=== PATIENT | female | born 1960 | race Caucasian/White ===

== ENCOUNTER → 2016-08-05 | Outpatient (CLI) | payer BC ==
[~2016-08-05] MED LIST: BUPR-79 PO; NITR1CAP33 PO; OXYC-57 PO; PHEN-876 PO; ZNTT/150 PO
--- NOTE | 2016-08-06 13:19 | MAMMOGRAPHY REPORT ---
BILATERAL DIGITAL SCREENING MAMMOGRAM TOMOSYNTHESIS WITH CAD: 08/05/2016 CLINICAL HISTORY: Routine screening. Patient has no complaints. TECHNIQUE: Breast tomosynthesis in addition to standard 2D mammography was performed. Current study was also evaluated with a Computer Aided Detection (CAD) system. COMPARISON: Comparison is made to exams dated: 07/29/2015 mammogram, 07/25/2014 mammogram, 03/21/2013 mammogram, 12/01/2011 mammogram, 09/05/2010 stereotactic biopsy, and 07/22/2010 mammogram - [facility]. BREAST COMPOSITION: There are scattered areas of fibroglandular density in both breasts. FINDINGS: There is a stable metallic biopsy marker in the anterior right breast. No new suspicious mass, architectural distortion or cluster of microcalcifications is seen. IMPRESSION: ACR BI-RADS CATEGORY 1: NEGATIVE There is no mammographic evidence of malignancy. A 1 year screening mammogram is recommended. The p atient will receive written notification of the results. Approximately 10% of breast cancers are not detected with mammography. A negative mammographic repor t should not delay biopsy if a clinically suggestive mass is present. Christina Simmons M.D. ay/:08/05/2016 17:19:30 Mathematician Research: Chen BURKS(Lynda)(Hakeem), [facility] letter sent: Normal 1/2 BI-RADS Code: ACR BI-RADS Category 1: Negative
== END | disposition home or self-care (01) ==
LOC: C.MAMM 16:38
PROVIDERS: ATTEND Family Medicine
DX: Z12.31 Encounter for screening mammogram for malignant neoplasm of breast (principal)

== ENCOUNTER 2017-04-15 05:20 | Inpatient (IN) | payer BC, OTHER ==
--- NOTE | 2017-03-19 15:45 | PAT Medication Instructions ---
Service Date Mar 19, 2017. Current Home Medication List Bupropion (Wellbutrin-Xl), 1 TAB PO QAM Bupropion HCl (Bupropion HCl Xl), 1 TAB PO QAM Meloxicam (Meloxicam), 1 TAB PO QAM Omeprazole (Prilosec), 20 MG PO Q2D Ranitidine (Zantac), 150 MG PO Q2D Trazodone Hcl (Trazodone), 50 MG PO HS PRN for Sleep Valacyclovir (Valtrex), 1,000 MG PO DAILY PRN for cold sores [I Caps], 1 TAB PO QAM Medication Instructions For Your Scheduled Surgery - Check with surgeon for instructions: Meloxicam (Meloxicam), 1 TAB PO QAM - Continue as directed: Omeprazole (Prilosec), 20 MG PO Q2D Ranitidine (Zantac), 150 MG PO Q2D - Hold the following medications the morning of surgery: [I Caps], 1 TAB PO QAM - Take the following medications the morning of surgery with a sip of water: Bupropion (Wellbutrin-Xl), 1 TAB PO QAM Bupropion HCl (Bupropion HCl Xl), 1 TAB PO QAM Valacyclovir (Valtrex), 1,000 MG PO DAILY PRN for cold sores (if needed) - Take the following medications as scheduled the night before surgery: Trazodone Hcl (Trazodone), 50 MG PO HS PRN for Sleep Valacyclovir (Valtrex), 1,000 MG PO DAILY PRN for cold sores (if needed) If you have any questions please call us at [phone] or [phone] or [phone]
[2017-03-19 16:26] LABS: BASO % 0.5 %; BASO ABS # 0.04 K/uL (0-0.2); EOS % 2.7 %; HEMATOCRIT 40.5 % (37-47); HEMOGLOBIN 13.8 g/dL (12.0-16.0); IG# 0.03 K/uL (0.00-0.02); LYMPH % 39.5 %; LYMPH ABS # 2.97 K/uL (1.2-3.4); MEAN CELL VOLUME 89.4 fL (80-100); MEAN CORPUSCULAR HEMOGLOBIN 30.5 pg (25-34); MEAN CORPUSCULAR HGB CONC 34.1 g/dl (32-36); MEAN PLATELET VOLUME 9.3 fL (7.4-10.4); MONO % 6.8 %; MONO ABS # 0.51 K/uL (0.11-0.59); NEUT % 50.1 %; NEUT ABS # 3.76 K/uL (1.4-6.5); PLATELET COUNT 261 K/uL (130-400); RED CELL DISTRIBUTION WIDTH CV 13.2 % (11.5-14.5); RED CELL DISTRIBUTION WIDTH SD 43.1 fL (36.4-46.3); WHITE BLOOD COUNT 7.51 K/uL (4.8-10.8)
[2017-03-19 16:36] LABS: PTT PATIENT 26.6 SECONDS (21.0-31.0)
[2017-03-19 16:37] LABS: CALCIUM 9.1 mg/dl (8.5-10.1); CREATININE 0.87 mg/dl (0.60-1.20); POTASSIUM 4.4 mmol/L (3.5-5.1)
--- NOTE | 2017-03-19 17:09 | DIAGNOSTIC IMAGING REPORT ---
CHEST 2 VIEWS ROUTINE HISTORY: Preop. COMPARISON: None. FINDINGS: The lungs are clear. Cardiac silhouette is normal in size. No pleural effusions. No pneumothorax. Dextroscoliosis of the thoracic spine. IMPRESSION: No acute process. Electronically signed by: Price Stephens M.D. 03/19/2017 5:07 PM Dictated Date/Time: 03/19/2017 5:06 PM
[2017-03-20 06:56] LABS: HEMOGLOBIN A1C 5.6 % (4.5-5.6)
--- NOTE | 2017-04-14 18:21 | HISTORY & PHYSICAL EXAMINATION ---
DATE OF ADMISSION: 04/15/2017 CHIEF COMPLAINT: Chronic left knee pain. HISTORY OF PRESENT ILLNESS: This is a 56-year-old female patient of Dr. Irving complaining of chronic left knee pain, longstanding, now progressively getting worse. The patient has been diagnosed with end-stage osteoarthritis, per clinical and radiographic exams. The patient has failed conservative treatment including intraarticular injections, previous arthroscopies and physical therapy. The patient has increased pain with weightbearing activities and her pain does interfere with her activities of daily living. PAST MEDICAL HISTORY: Osteoarthritis, sciatica, acid reflux, and obesity. SOCIAL HISTORY: Nonsmoker and occasional drinker. PAST SURGICAL HISTORY: Back surgery, right foot surgery, total knee replacement on the right, cholecystectomy, incontinence mesh, tubal ligation, varicose vein surgery, tonsillectomy and left knee arthroscopy x2. FAMILY HISTORY: Noncontributory. REVIEW OF SYSTEMS: The patient complains of chronic left knee pain; otherwise, denies any shortness of breath, chest pain, nausea, vomiting or any other joint complaints. MEDICATIONS: Meloxicam 15 mg daily, trazodone 50 mg daily at bedtime, valacyclovir 1000 mg 2 tablets every 12 hours for cold sores p.r.n., bupropion 150 mg again 450 daily, omeprazole 20 mg every other day and ranitidine 150 mg every other day, tramadol as needed. ALLERGIES: FLAGYL. PHYSICAL EXAMINATION: GENERAL: Well-developed, well-nourished 56-year-old female in no acute distress. She is alert and oriented x3 and pleasant. HEENT: Normocephalic, atraumatic. Extraocular motions are intact. Pupils are equal and reactive to light. HEART: Regular rate and rhythm, no murmurs appreciated. LUNGS: Clear. ABDOMEN: Soft, nontender, bowel sounds present. EXTREMITIES: Left knee is 0-100 degrees of range of motion. She has a neutral alignment with mild effusion. She has crepitation with passive range of motion. She has 4/5 strength. NEUROLOGIC: Neurovascularly, she is intact in her left lower extremity. DIAGNOSES: Left knee end-stage osteoarthritis, acid reflux, and obesity. PLAN: The patient was advised of her diagnosis. Indications, risks, benefits, and postop course have all been reviewed. The patient wishes to proceed with a left total knee arthroplasty. Necessary consent forms, preoperative testing and clearances will be obtained. [facility]
[~2017-04-15] VITALS: Ht 167.6 cm; Wt 86.2 kg
[2017-04-15] VITALS (10 sets, daily range): BP systolic 103–140; BP diastolic 65–80; PULSE 82–94; TEMP 36.5–37; O2SAT 94–99; Ht 167.6 cm; Wt 86.2 kg
[~2017-04-15 05:20] MED LIST changes: -BUPR-79 PO; +BUPRTAB51 PO; +I CAPS PO; +MELO15TA4 PO; -NITR1CAP33 PO; -OXYC-57 PO; -PHEN-876 PO; +PRLSR20 PO; +TRAZ50TA35 PO; +VALA500T60 PO; +WLLXL150 PO
[2017-04-15] MEDS ORDERED: DEXAMETHASONE 4 MG TAB PO SCH (06:00)
[2017-04-15] MEDS ORDERED: FAMOTIDINE 20 MG TAB PO SCH (06:00)
[2017-04-15] MEDS ORDERED: CeleBREX 200 MG CAP PO SCH (06:00)
[2017-04-15] MEDS ORDERED: ACETAMINOPHEN 500 MG TAB PO SCH (06:00)
[2017-04-15] MEDS ORDERED: CEFAZOLIN 2000MG IV PUSH 10 ML IV SCH (06:00)
[2017-04-15] MEDS ORDERED: ROPIVACAINE 5MG/ML 30 ML 150 MG, BUPIVACAINE 0.5% MPF INJ 30 ML, EpINEphrine HCL INJ 0.... INFIL SCH ×8 (06:00)
[2017-04-15] MEDS ORDERED: GABAPENTIN 300 MG CAP PO SCH (06:00)
[2017-04-15] MEDS ORDERED: LACTATED RINGER'S 1000ML 500 ML IV SCH (06:00)
[2017-04-15] MEDS ORDERED: LACTATED RINGER'S 1000ML IV SCH (06:00)
[2017-04-15] MEDS ORDERED: LACTATED RINGER'S 1000ML 1,000 ML IV SCH (06:00)
[2017-04-15] MEDS ORDERED: METOCLOPRAMIDE HCL 10 MG TAB PO SCH (06:00)
[2017-04-15] MEDS ORDERED: BUPIVACAINE 0.5 % 5 MG/1 ML PF 10ML VIAL ONE (06:20)
[2017-04-15] MEDS ORDERED: BUPIVACAINE 0.25% 30 ML VIAL ONE (06:21)
[2017-04-15] MEDS: TRANEXAMIC ACID INJ 1,000 MG in SYRINGE 0 ML IV SCH ×2 (06:30→07:10)
[2017-04-15] MEDS ORDERED: MIDAZOLAM HCL 1 MG/ML 2ML VIAL ONE ×4 (06:55→08:13)
[2017-04-15] MEDS ORDERED: EpHEDrine SULFATE INJ 50 MG/ML AMP IV PRN (07:15)
[2017-04-15] MEDS ORDERED: ATROPINE SULFATE 0.1 MG/ML 5ML SYR IV PRN (07:15)
[2017-04-15] MEDS ORDERED: ONDANSETRON INJ 2 MG/ML 2 ML VIAL IV PRN ×2 (07:15→09:30)
--- NOTE | 2017-04-15 07:19 | History & Physical Bridge Note ---
H&P Re-Evaluation Bridge Note: I have examined the patient, reviewed the History & Physical and in the interval since the performance of the History & Physical I have noted the following changes of clinical significance: No changes noted
[2017-04-15] MEDS ORDERED: ORTHO JOINT ANESTHETIC ONE (07:38)
[2017-04-15] MEDS ORDERED: BACITRACIN 50000 UNIT VIAL ONE (07:38)
[2017-04-15] MEDS ORDERED: POVIDONE-IODINE OP SOLN 30 ML BTL ONE (07:38)
[2017-04-15] MEDS ORDERED: PROPOFOL IV EMULSION 10 MG/ML 20 ML VIAL IV ONE (07:48)
[2017-04-15] MEDS ORDERED: LIDOCAINE HCL 2% 2 ML VIAL (20MG/ML) ONE (07:48)
--- NOTE | 2017-04-15 09:24 | [facility] Post Operative Brief Note ---
Immediate Operative Summary Operative Date Apr 15, 2017. Pre-Operative Diagnosis Left knee end stage osteoarthritis Post-Operative Diagnosis Left knee end stage osteoarthritis Procedure(s) Performed Left total knee arthroplasty Surgeon Dr. Christensen Pizza Maker Surgeon(s) Kane Merritt PA-C Estimated Blood Loss 5cc Findings tricompartmental djd oa chronic acl tear and lateral meniscal tear Specimens A. Left knee bone and tissue Drains 2 hemovac Anesthesia spinal sedation and adductor block and orthomix Complication(s) None Disposition Recovery Room / PACU
[2017-04-15] MEDS ORDERED: ZOLPIDEM TARTRATE 5 MG TAB PO PRN (09:30)
[2017-04-15] MEDS ORDERED: METOCLOPRAMIDE HCL INJ 5 MG/ML 2 ML VIAL IV PRN (09:30)
[2017-04-15] MEDS ORDERED: BISACODYL 10 MG SUPP PR PRN (09:30)
[2017-04-15] MEDS ORDERED: SOD PHOSPHATE/SOD BIPHOSPHATE ENEMA 132 ML BTL PR PRN (09:30)
[2017-04-15] MEDS ORDERED: MoRPHine SULFATE 2 MG/ML CARP IV PRN ×2 (09:30→12:30)
[2017-04-15] MEDS ORDERED: MAGNESIUM HYDROXIDE SUSP 30 ML UDC PO PRN (09:30)
--- NOTE | 2017-04-15 09:46 | OPERATIVE REPORT ---
DATE OF OPERATION: 04/15/2017 INDICATION FOR PROCEDURE: A 56-year-old female with chronic progressive osteoarthritis of left knee. Radiographs demonstrate she has tricompartmental DJD, [id number] in the medial compartment and some patellofemoral malalignment and patellofemoral DJD as well. She had progressive osteoarthritis, failed all conservative management, now presents for surgery. PREOPERATIVE DIAGNOSIS: End-stage osteoarthritis, left knee. POSTOPERATIVE DIAGNOSIS: Same. PROCEDURE: Left total knee arthroplasty. SURGEON: Ezequiel Christensen MD. NEGATIVE CHECKER: PATTI Cole. ANESTHESIA: Spinal adductor nerve block Orthomix. OPERATIVE PROCEDURE: The patient was taken to the operating room and anesthetized under anesthesia as dictated. She was placed supine on the operating room table. Pneumatic tourniquet was placed on left upper thigh. Left knee exam demonstrates she had range of motion of -5 through 125. She had no evidence of any pseudolaxity with stable collateral ligaments, positive Dia exam. She had arthroscopic portals from previous surgery. Her left lower extremity was prepped and draped with ChloraPrep. The leg was elevated, exsanguinated with Esmarch bandage. Pneumatic tourniquet was raised to 300 mmHg. An anterior incision made across the left knee. Skin was incised sharply. Subcutaneous flaps were elevated. Incision was made through medial retinaculum and extended up in the mid third of the quadriceps tendon and extended down to the medial tibial tubercle. Intraarticular findings demonstrate she had tricompartmental DJD. She had grade 4 DJD, medial and lateral compartment chronic lateral meniscus tear, chronic ACL tear. She also had patellofemoral malalignment and grade 3 DJD, patellofemoral joint. I used the [employer] 2.0, total knee arthroplasty system using [employer] MRI templating. Femur templated for a 4, tibia for a 3. Exposure required excision of the infrapatellar fat pad, the meniscus remnants, the remnants of the ACL, the PCL and she had fairly balance knee so we do not have to do any specific releases. The fat pad over the anterior femur for placement of the component in that area was resected at the upper articular edge of the knee. The lateral synovial bands were released. The femur was exposed and a custom femoral cutting block was pinned in position and the distal femoral cut was then made. Then the 5-in-1 cutting block for the 4 femur was placed and the anterior, posterior and chamfer cuts were made. The knee was extended and a subperiosteal peel lateral release was performed around the patella. Patella width was measured, was reproduced using a freehand cut technique and a 35 dome patellar component. Drill holes were made for that component. The excess lateral facet of patella was beveled off to prevent any impingement. The tibia was subluxed and the custom tibial cutting block was pinned in position. The proximal tibial cut was made. Then, were some posteromedial osteophytes that were cleared and we assessed the lamina automobile body repair supervisor to assess ligamentous balance and ligaments were balanced. The tibia was exposed and the 3 tibial trial was externally rotated in line with the tibial tubercle, pinned in position. The punch for the stem was used. The 4 femoral trial was inserted, centered, the notch cutting device was used. A collet was placed and a 13 poly insert, high flex posterior stabilized insert gave balanced ligaments through full range of motion and the patella tracked centrally with patellar trial in place. The trials removed. The anesthetic cocktail was injected per protocol. The knee was copiously irrigated with pulsatile lavage antibiotic solution and bacitracin. Bony surfaces were dried. The final components were cemented with Simplex G cement. Final components were the 4 Oxinium [employer] Journey left posterior stabilized femoral component, the 3 tibial base plate, the 30 mm high flex poly insert and 35 patella domed component. While the cement cured, we used Betadine soak per protocol. The knee was copiously irrigated with pulsatile lavage antibiotic solution with bacitracin. Two drains were brought out laterally. The quadriceps tendon and medial retinaculum were closed with interrupted [id number] #1 Vicryl sutures. The knee was taken through full range of motion and repair was secured. The subcutaneous tissues were closed with interrupted 2-0 Vicryl, skin was closed with tonya and Silverlon dressing was applied. The patient tolerated the procedure well. PATTI Cole was my medical technician assistant. He functioned as medical technician assistant for the entire procedure. He assisted in patient positioning, prepping and draping, knee positioning, soft tissue retraction, instrument management during the procedure and assisted in the subcutaneous and skin closure and will participate in the postoperative care of the patient. I attest to the content of the Intraoperative Record and any orders documented therein. Any exception s are noted below.
--- NOTE | 2017-04-15 09:49 | DIAGNOSTIC IMAGING REPORT ---
TWO VIEWS LEFT KNEE CLINICAL HISTORY: Postoperative examination. FINDINGS: AP and crosstable lateral portable views of the left knee are obtained. A left knee arthroplasty is in near anatomic alignment. There has been undersurface remodeling of the patella. No acute fracture is seen. There are expected postoperative changes around the knee including skin clips, a surgical drain, soft tissue edema, and subcutaneous gas. IMPRESSION: Expected postoperative changes status post left knee arthroplasty. No acute fracture is seen. Electronically signed by: Iain Auguste M.D. 04/15/2017 9:47 AM Dictated Date/Time: 04/15/2017 9:47 AM
--- NOTE | 2017-04-15 10:57 | Anesthesiology Progress Note ---
Anesthesia Post Op Note Date & Time Apr 15, 2017 at 10:57 Vital Signs Pain Intensity: 0 Vital Signs Past 12 Hours Date Time Temp Pulse Resp B/P (MAP) Pulse Ox O2 Delivery O2 Flow Rate FiO2 04/15/17 10:31 83 15 94 04/15/17 10:31 84 15 04/15/17 10:30 117/66 04/15/17 10:26 84 13 04/15/17 10:26 85 13 94 04/15/17 10:25 109/73 04/15/17 10:21 82 14 04/15/17 10:21 83 14 94 04/15/17 10:20 113/70 04/15/17 10:16 84 11 04/15/17 10:16 84 11 96 04/15/17 10:15 111/67 04/15/17 10:15 36.9 79 14 111/67 94 Room Air 04/15/17 10:11 82 23 04/15/17 10:11 79 23 91 04/15/17 10:10 113/74 04/15/17 10:06 83 12 95 04/15/17 10:06 84 12 04/15/17 10:05 36.6 04/15/17 10:00 82 14 127/80 96 04/15/17 10:00 83 14 04/15/17 09:55 86 11 04/15/17 09:55 86 11 123/74 98 04/15/17 09:50 80 19 114/71 96 04/15/17 09:50 81 19 04/15/17 09:45 82 15 04/15/17 09:45 82 15 110/73 97 04/15/17 09:40 80 16 117/69 96 04/15/17 09:40 82 16 04/15/17 09:35 85 18 114/67 96 04/15/17 09:35 84 18 04/15/17 09:32 103/70 04/15/17 09:25 36.6 89 16 104/71 98 Room Air 04/15/17 05:44 36.6 84 18 140/80 99 Room Air Notes Mental Status: alert / awake / arousable, participated in evaluation Pt Amnestic to Procedure: Yes Nausea / Vomiting: adequately controlled Pain: adequately controlled Airway Patency, RR, SpO2: stable & adequate BP & HR: stable & adequate Hydration State: stable & adequate Neuraxial Anesthesia: was administered, sensory block is resolving Anesthetic Complications: no major complications apparent
[2017-04-15] MEDS ORDERED: MoRPHine SULFATE 4 MG/ML 1 ML CARP\\VIAL IV PRN (12:30)
[2017-04-15] MEDS: D5W AND 1/2NSS + 20MEQ KCL 1,000 ML IV SCH ×2 (13:10→21:48)
[2017-04-15] MEDS: ACETAMINOPHEN 500 MG TAB PO SCH ×2 (13:10→21:48)
--- NOTE | 2017-04-15 14:09 | Medical Consult ---
Consultation Date of Consultation: Apr 15, 2017. Attending Physician: Ezequiel Christensen M.D. Reason for Consultation: Post Op Medical Management History of Present Illness 56 year old female who is s/p left TKA today by Dr. Christensen. Post operatively the patient is doing well. She reports she remains somewhat numb from the surgery. She reports her pain is well controlled. She had a brief episode of nausea which has resolved. No abdominal pain or vomiting. She denies chest pain and shortness of breath. No lightheadedness or dizziness. She has not voided since surgery. Past Medical/Surgical History Medical Problems: (1) Depression Status: Chronic (2) GERD (gastroesophageal reflux disease) Status: Chronic Surgical Problems: (1) H/O tubal ligation Status: Chronic (2) History of bladder surgery Status: Chronic (3) Hx of laminectomy Status: Chronic (4) Hx of tonsillectomy Status: Chronic (5) S/P cholecystectomy Status: Chronic (6) Status post total knee replacement, right Status: Chronic Family History Diabetes mellitus FATHER Hypertension FATHER Social History Smoking Status: Former Smoker Alcohol Use: occasionally Allergies Coded Allergies: Metronidazole (Verified Allergy, Unknown, flu symptoms, rash, 04/15/17) Home Medications [I Caps] 1 Tab PO QAM Prilosec (Omeprazole) 20 Mg Capcr 20 Mg PO Q2D Valtrex (Valacyclovir HCl) 500 Mg Tab 1,000 Mg PO DAILY PRN 30 Days Wellbutrin-Xl (Bupropion HCl) 300 Mg Tabcr 1 Tab PO QAM Meloxicam 15 Mg Tab 1 Tab PO QAM Bupropion HCl Xl (Bupropion HCl) 150 Mg Tabcr 1 Tab PO QAM Zantac (Ranitidine HCl) 150 Mg Tab 150 Mg PO Q2D Current Inpatient Medications Current Inpatient Medications Medications (Trade) Dose Ordered Sig/Cindy Route Start Time Stop Time Status Last Admin Dose Admin Cefazolin Sodium 10 ml @ 2.5 mls/min PREOP IV 04/15/17 06:00 04/15/17 18:00 04/15/17 07:30 2.5 MLS/MIN Acetaminophen (Tylenol Tab) 1,000 mg PREOP PO 04/15/17 06:00 04/15/17 18:00 04/15/17 06:05 1,000 MG Celecoxib (CeleBREX CAP) 200 mg PREOP PO 04/15/17 06:00 04/15/17 18:00 04/15/17 06:04 200 MG Dexamethasone (Decadron Tab) 8 mg PREOP PO 04/15/17 06:00 04/15/17 18:00 04/15/17 06:04 8 MG Famotidine (Pepcid Tab) 20 mg PREOP PO 04/15/17 06:00 04/15/17 18:00 04/15/17 06:05 20 MG Gabapentin (Neurontin Cap) 600 mg PREOP PO 04/15/17 06:00 04/15/17 18:00 04/15/17 06:04 600 MG Metoclopramide HCl (Reglan Tab) 10 mg PREOP PO 04/15/17 06:00 04/15/17 18:00 04/15/17 06:04 10 MG Bupropion HCl (Wellbutrin-Xl Tab) 300 mg QAM PO 04/16/17 09:00 05/16/17 08:59 Bupropion HCl (Wellbutrin-Xl Tab) 150 mg QAM PO 04/16/17 09:00 05/16/17 08:59 Ranitidine HCl (zANTac TAB) 150 mg Q2D@0900 PO 04/17/17 09:00 05/17/17 08:59 Valacyclovir HCl (Valtrex Tab) 1,000 mg DAILY PRN PO 04/15/17 09:30 04/25/17 09:29 Pantoprazole Sodium (Protonix Tab) 40 mg Q2D@0900 PO 04/16/17 09:00 05/16/17 08:59 Potassium Chloride/Dextrose/ Sod Cl 1,000 ml @ 100 mls/hr Q10H IV 04/15/17 12:30 04/16/17 09:26 04/15/17 13:10 100 MLS/HR Cefazolin Sodium 2000 mg/Syringe 10 ml @ 2.5 mls/min Q8H IV 04/15/17 16:00 04/16/17 00:03 Celecoxib (CeleBREX CAP) 200 mg BID PO 04/15/17 21:00 05/15/17 20:59 Oxycodone HCl (Roxicodone Immediate Rel Tab) 1 TABLET FOR PAIN RATING... Q4H PRN PO 1/11/18 09:30 04/29/17 09:29 Acetaminophen (Tylenol Tab) 1,000 mg Q8 PO 04/15/17 14:00 05/15/17 13:59 04/15/17 13:10 1,000 MG Magnesium Hydroxide (Milk Of Magnesia Susp) 30 ml Q6H PRN PO 04/15/17 09:30 05/15/17 09:29 Bisacodyl (Dulcolax Supp) 10 mg DAILY PRN [place] 04/15/17 09:30 05/15/17 09:29 Sodium Biphosphate/ Sodium Phosphate (Fleet Enema) 132 ml DAILY PRN [place] 04/15/17 09:30 05/15/17 09:29 Docusate Sodium (coLACE CAP) 100 mg BID PO 04/15/17 21:00 05/15/17 20:59 Diphenhydramine HCl (Benadryl Cap) 25 mg Q8H PRN PO 04/15/17 09:30 05/15/17 09:29 Zolpidem Tartrate (Ambien Tab) 5 mg HSZ PRN PO 04/15/17 09:30 05/15/17 09:29 Multivitamins (Multivitamin Tab) 1 tab QAM PO 04/16/17 09:00 05/16/17 08:59 Ondansetron HCl (Zofran Inj) 4 mg Q6H PRN IV 04/15/17 09:30 05/15/17 09:29 Metoclopramide HCl (Reglan Inj) 10 mg Q6H PRN IV 04/15/17 09:30 05/15/17 09:29 Tramadol HCl (Ultram Tab) 1 tablet for pain rating... Q4H PRN PO 04/15/17 09:30 05/15/17 09:29 Aspirin (Ecotrin Tab) 81 mg BID PO 04/15/17 21:00 05/15/17 20:59 Morphine Sulfate (MoRPHine SULFATE INJ) 2 mg Q2H PRN IV 04/15/17 12:30 04/29/17 12:29 Morphine Sulfate (MoRPHine SULFATE INJ) 4 mg Q2H PRN IV 04/15/17 12:30 04/29/17 12:29 Review of Systems ROS per HPI, all other systems reviewed and negative Physical Exam Date Time Temp Pulse Resp B/P (MAP) Pulse Ox O2 Delivery O2 Flow Rate FiO2 04/15/17 13:36 36.9 85 16 103/65 (78) 94 Room Air 04/15/17 12:40 94 16 125/79 (94) 96 Room Air 04/15/17 11:47 36.7 84 19 111/72 (85) 98 Room Air 04/15/17 11:15 36.7 82 16 108/72 (84) 94 Room Air 04/15/17 11:06 Room Air 04/15/17 11:00 98 Room Air 04/15/17 10:40 36.8 84 16 106/68 (81) 96 Room Air 04/15/17 10:31 83 15 94 04/15/17 10:31 84 15 04/15/17 10:30 117/66 04/15/17 10:26 84 13 04/15/17 10:26 85 13 94 04/15/17 10:25 109/73 04/15/17 10:21 82 14 04/15/17 10:21 83 14 94 04/15/17 10:20 113/70 04/15/17 10:16 84 11 04/15/17 10:16 84 11 96 04/15/17 10:15 111/67 04/15/17 10:15 36.9 79 14 111/67 94 Room Air 04/15/17 10:11 82 23 04/15/17 10:11 79 23 91 04/15/17 10:10 113/74 04/15/17 10:06 83 12 95 04/15/17 10:06 84 12 04/15/17 10:05 36.6 04/15/17 10:00 82 14 127/80 96 04/15/17 10:00 83 14 04/15/17 09:55 86 11 04/15/17 09:55 86 11 123/74 98 04/15/17 09:50 80 19 114/71 96 04/15/17 09:50 81 19 04/15/17 09:45 82 15 04/15/17 09:45 82 15 110/73 97 04/15/17 09:40 80 16 117/69 96 04/15/17 09:40 82 16 04/15/17 09:35 85 18 114/67 96 04/15/17 09:35 84 18 04/15/17 09:32 103/70 04/15/17 09:25 36.6 89 16 104/71 98 Room Air 04/15/17 05:44 36.6 84 18 140/80 99 Room Air General Appearance: WD/WN, no apparent distress Head: normocephalic, atraumatic Eyes: normal inspection, EOMI, sclerae normal ENT: hearing grossly normal, + pertinent finding (mucous membranes moist) Neck: supple, no JVD, trachea midline Respiratory/Chest: lungs clear, normal breath sounds, no respiratory distress Cardiovascular: regular rate, rhythm, no edema, normal peripheral pulses Abdomen/GI: normal bowel sounds, non tender, soft, no organomegaly Extremities/Musculoskelatal: + pertinent finding (s/p left knee surgery, surgical dressing intact, drain in place draining bloody drainge; sensation and movement decreased to LLE, circulation intact) Neurologic/Psych: no motor/sensory deficits, alert, normal mood/affect, oriented x 3 Skin: normal color, warm/dry Laboratory Results Last 24 Hours Test 04/15/17 06:01 Hepatitis C Antibody Screen NEG Assessment & Plan S/P LEFT TKA - POD#0 - activity and wound care orders as per ortho - pain control with bowel regimen - PT/OT - monitor H/H for acute blood loss anemia and transfuse blood products PRN DEPRESSION - continue Wellbutrin GERD - continue H2 payton and PPI DVT PROPHYLAXIS - ASA 81mg BID per ortho Thank you for this consultation. We will follow the patient with you during their hospital stay. You can reach a [facility] via pager @ . ADDENDUM: This is a 56 year old female here for a planned L TKA. Doing well post-operatively. Wound vac in place. Moving knee well; no pain tolerating PO intake. Takes a high dose of Wellbutrin; did not tolerating some SSRIs in the past. Outpatient f/u for med reconciliation aspirin 81mg BID for DVT ppx.
[2017-04-15] MEDS: CEFAZOLIN IV 2,000 MG in SYRINGE 0 ML IV SCH ×2 (15:49→23:36)
[2017-04-15] MEDS: OXYCODONE HCL IR 5 MG TAB (IMMEDIATE RELEASE) PO PRN ×2 (21:47→22:42)
[2017-04-15] MEDS: DOCUSATE SODIUM 100 MG CAP PO SCH (21:50)
[2017-04-15] MEDS: ASPIRIN 81 MG ECTAB PO SCH (21:50)
[2017-04-15] MEDS: CeleBREX 200 MG CAP PO SCH (21:50)
[2017-04-16] MEDS: OXYCODONE HCL IR 5 MG TAB (IMMEDIATE RELEASE) PO PRN ×5 (02:45→23:28)
[2017-04-16 03:35] VITALS: BP 99/62; PULSE 79; TEMP 36.7; O2SAT 96
[2017-04-16] MEDS: ACETAMINOPHEN 500 MG TAB PO SCH ×3 (05:46→21:54)
[2017-04-16 06:19] LABS: HEMATOCRIT 33.3 % (37-47); HEMOGLOBIN 11.4 g/dL (12.0-16.0); MEAN CORPUSCULAR HEMOGLOBIN 30.5 pg (25-34); MEAN CORPUSCULAR HGB CONC 34.2 g/dl (32-36); MEAN PLATELET VOLUME 9.2 fL (7.4-10.4); PLATELET COUNT 252 K/uL (130-400); RED CELL DISTRIBUTION WIDTH CV 13.1 % (11.5-14.5); RED CELL DISTRIBUTION WIDTH SD 42.8 fL (36.4-46.3); WHITE BLOOD COUNT 13.02 K/uL (4.8-10.8)
[2017-04-16 06:51] LABS: CALCIUM 8.6 mg/dl (8.5-10.1); CREATININE 0.79 mg/dl (0.60-1.20); POTASSIUM 4.2 mmol/L (3.5-5.1)
[2017-04-16] MEDS: D5W AND 1/2NSS + 20MEQ KCL 1,000 ML IV SCH (07:04)
[2017-04-16 07:11] VITALS: BP 117/73; PULSE 71; TEMP 36.5; O2SAT 100
--- NOTE | 2017-04-16 07:35 | Orthopedic Progress Note ---
Orthopedic Progress Note Date of Service Apr 16, 2017. Subjective Post OP Day: 1 Reports: feeling well, pain controlled w PO medications, Denies: complaints Objective calves soft nontender, N/V intact, dressing C/D/I, A&O x3, toes mobile Date Time Temp Pulse Resp B/P (MAP) Pulse Ox O2 Delivery O2 Flow Rate FiO2 04/16/17 07:11 36.5 71 16 117/73 (88) 100 Room Air 04/16/17 03:35 36.7 79 16 99/62 (74) 96 Room Air 04/15/17 23:45 Room Air 04/15/17 23:07 36.8 83 16 109/67 (81) 96 Room Air 04/15/17 19:50 36.5 91 16 108/67 (81) 96 Room Air 04/15/17 15:50 Room Air 04/15/17 15:44 37.0 82 16 129/76 (93) 96 Room Air 04/15/17 13:36 36.9 85 16 103/65 (78) 94 Room Air 04/15/17 12:40 94 16 125/79 (94) 96 Room Air 04/15/17 11:47 36.7 84 19 111/72 (85) 98 Room Air 04/15/17 11:15 36.7 82 16 108/72 (84) 94 Room Air 04/15/17 11:06 Room Air 04/15/17 11:00 98 Room Air 04/15/17 10:40 36.8 84 16 106/68 (81) 96 Room Air 04/15/17 10:31 83 15 94 04/15/17 10:31 84 15 04/15/17 10:30 117/66 04/15/17 10:26 84 13 04/15/17 10:26 85 13 94 04/15/17 10:25 109/73 04/15/17 10:21 82 14 04/15/17 10:21 83 14 94 04/15/17 10:20 113/70 04/15/17 10:16 84 11 04/15/17 10:16 84 11 96 04/15/17 10:15 111/67 04/15/17 10:15 36.9 79 14 111/67 94 Room Air 04/15/17 10:11 82 23 04/15/17 10:11 79 23 91 04/15/17 10:10 113/74 04/15/17 10:06 83 12 95 04/15/17 10:06 84 12 04/15/17 10:05 36.6 04/15/17 10:00 82 14 127/80 96 04/15/17 10:00 83 14 04/15/17 09:55 86 11 04/15/17 09:55 86 11 123/74 98 04/15/17 09:50 80 19 114/71 96 04/15/17 09:50 81 19 04/15/17 09:45 82 15 04/15/17 09:45 82 15 110/73 97 04/15/17 09:40 80 16 117/69 96 04/15/17 09:40 82 16 04/15/17 09:35 85 18 114/67 96 04/15/17 09:35 84 18 04/15/17 09:32 103/70 04/15/17 09:25 36.6 89 16 104/71 98 Room Air Laboratory Results 24 Hours: Test 04/16/17 05:53 Hematocrit 33.3 % Hemoglobin 11.4 g/dL Assessment & Plan Assessment: POD 1 s/p Left TKA Plan: PT/OT Planning for OPPT Inhouse Planning Pain Management: Celebrex, Ultram, PO Tylenol, Oxy IR DVT Prophylaxis: TEDs, SCDs, ASA Discharge Planning Discharge Planning: home with oppt
--- NOTE | 2017-04-16 08:31 | Anesthesiology Progress Note ---
Anesthesia Post Op Note Date & Time Apr 16, 2017 at 08:31 Vital Signs Pain Intensity: 6.0 Vital Signs Past 12 Hours Date Time Temp Pulse Resp B/P (MAP) Pulse Ox O2 Delivery O2 Flow Rate FiO2 04/16/17 07:35 Room Air 04/16/17 07:11 36.5 71 16 117/73 (88) 100 Room Air 04/16/17 03:35 36.7 79 16 99/62 (74) 96 Room Air 04/15/17 23:45 Room Air 04/15/17 23:07 36.8 83 16 109/67 (81) 96 Room Air Notes Mental Status: alert / awake / arousable, participated in evaluation Pt Amnestic to Procedure: Yes Nausea / Vomiting: adequately controlled Pain: adequately controlled Airway Patency, RR, SpO2: stable & adequate BP & HR: stable & adequate Hydration State: stable & adequate Neuraxial Anesthesia: sensory block resolved Anesthetic Complications: no major complications apparent
[2017-04-16] MEDS ORDERED: PANTOprazole SOD 40 MG TAB PO SCH ×2 (09:00)
[2017-04-16] MEDS: MULTIVITAMIN TAB PO SCH (09:05)
[2017-04-16] MEDS: ASPIRIN 81 MG ECTAB PO SCH ×2 (09:05→20:42)
[2017-04-16] MEDS: CeleBREX 200 MG CAP PO SCH ×2 (09:05→20:42)
[2017-04-16] MEDS: DOCUSATE SODIUM 100 MG CAP PO SCH ×2 (09:05→20:42)
[2017-04-16] MEDS: BuPROPion XL 150 MG TABCR PO SCH (09:06)
[2017-04-16] MEDS: BuPROPion XL 300 MG TABCR PO SCH (09:06)
--- NOTE | 2017-04-16 10:01 | Discharge Instructions ---
Discharge Instructions Date of Service Apr 16, 2017. Admission Reason for Admission: Left Knee Degenerative Joint Disease Discharge Discharge Diagnosis / Problem: Left Knee Djd Discharge Goals Goal(s): Decrease discomfort, Improve function, Increase independence Activity Recommendations Activity Limitations: per Instructions/Follow-up section Weightbearing Status: Left weightbearing (as tolerated) . Instructions / Follow-Up Instructions / Follow-Up ACTIVITY RECOMMENDATIONS: SELF CARE INSTRUCTIONS AFTER TOTAL KNEE REPLACEMENT A. You may need to continue a physical therapy program after discharge from the hospital. There are several options available to you. Your doctor will assist you in selecting the best one for you. 1. An out-patient facility 2 to 3 times a week for therapy or home therapy. 2. Continue working on all exercises taught to you in the hospital. Your goals should be to increase bending of your knee to 90 degrees and beyond and to fully straighten your knee. B. You may progress at your own pace from walking with a walker or crutches to a cane; then to no assistive devices. C. Make walking a part of your daily routine. Be up as much as comfortable with rest periods throughout the day. Rest with leg elevation is very important. Use the ice wrap frequently for the first 3-4 weeks. D. There are no restrictions on activities. You may ride in a car, shop, participate in toll line mechanic and all social activities. E. Wear the long elastic stockings (ASHLEIGH hose) 20 hours a day for 2 weeks after surgery. They can be removed several times a day for laundering and for a bath. F. You may shower, no tub baths until cleared by your doctor. SPECIAL CARE INSTRUCTIONS: VERY IMPORTANT TO READ AND REVIEW A. There are a few signs you need to watch for after you are home. Call [facility] [place] if you notice any of the followin. Increased severe knee pain. Some pain is expected especially when you exercise. 2. Increased swelling in your leg or knee; pain or swelling of the calf muscle in either lower leg. 3. Any fluid drainage from the incision. 4. Shortness of breath or chest pain. B. Please call [facility] at if you have any concerns or questions about your operation or recovery. The doctor or his nurse will return your call promptly. C. You must take antibiotics before dental work, bladder, bowel or other surgery. Your doctor will provide you with a permanent care to carry describing this precaution. IMPORTANT: * REMEMBER TO TAKE ASPIRIN, 81 MG, TWICE DAILY FOR 4 WEEKS UNLESS OTHERWISE DIRECTED. THIS IS YOUR BLOOD THINNER. * HIGH RISK PATIENTS MAY BE PRESCRIBED A STRONGER BLOOD THINNER. THIS WILL BE PROVIDED AT DISCHARGE. * CALL IF INCREASED PAIN, REDNESS, DRAINAGE OR FEVER GREATER THAT 101. * WEAR ASHLEIGH HOSE 20 HOURS PER DAY FOR 2 WEEKS. * Silverlon- This is a large adhesive bandage that contains silver ions. This helps your incision heal by fighting off bacteria and protecting it from the outside environment. You are permitted to shower with this dressing. This will remain on your incision for 7 days and then should be removed. Some visible blood or drainage through the dressing window is normal. If there is significant drainage or leaking noted before the 7 days notify your doctor's office immediately. Once removed, keep incision clean and dry. If there is any drainage or redness noted, please call your surgeon. . FOLLOW UP VISIT: If appointment is not already scheduled: Please call [facility] [place] to make a follow-up appointment for 2 weeks after your surgery at . Current Hospital Diet Patient's current hospital diet: Regular Diet Discharge Diet Recommended Diet: Regular Diet Procedures Procedures Performed: Left total knee arthroplasty Pending Studies Studies pending at discharge: no Laboratory Results Hemoglobin A1c Test 03/19/17 16:07 Range/Units Estimated Average Glucose 114 mg/dl Hemoglobin A1c 5.6 4.5-5.6 % Medical Emergencies . Who to Call and When: Medical Emergencies: If at any time you feel your situation is an emergency, please call 911 immediately. . Non-Emergent Contact Non-Emergency issues call your: Surgeon Call Non-Emergent contact if: temperature is above 101.5, your pain is not controlled, your pain is worsening, wound has increased drainage, wound has increased redness . "Provider Documentation" section prepared by Brown Cano. . VTE Core Measure Inpt VTE Proph given/why not?: Other Anticoagulation, T.E.D. Stockings, SCD's [place] Drug Monitoring Program Search Results: patient reviewed within database, no issues identified
[2017-04-16 11:07] VITALS: BP 119/76; PULSE 74; TEMP 36.6; O2SAT 98
[2017-04-16] MEDS: TRAMADOL HCL 50 MG TAB PO PRN ×3 (11:14→20:42)
[2017-04-16 15:14] VITALS: BP 110/70; PULSE 87; TEMP 36.9; O2SAT 96
--- NOTE | 2017-04-16 19:55 | Progress Note ---
Medicine Progress Note Date & Time of Visit: Apr 16, 2017 at 19:51. Subjective patient seen resting in chair, comfortable states she feels fine overall able to ambulate with no problems denies dyspnea, chest pain, dizziness, nausea no other symptoms Objective Last 8 Hrs Date Time Temp Pulse Resp B/P (MAP) Pulse Ox O2 Delivery O2 Flow Rate FiO2 04/16/17 15:40 Room Air 04/16/17 15:14 36.9 87 16 110/70 (83) 96 Room Air Physical Exam: General- oriented x 3, not in distress, speaks in sentences with no effort Eyes- EOMI, anicteric Neck- supple, no JVD, no adenopathy Lungs- clear breath sounds bilaterally, no rales/wheezes Heart- regular rhythm; no murmur, normal rate Abdomen- normal bowel sounds, soft, nontender, no masses or hepatosplenomegaly Extremities- no pretibial edema, no calf tenderness Neuro- alert, oriented x 3;no gross deficits Skin- warm & dry Laboratory Results: Last 24 Hours Test 04/16/17 05:53 White Blood Count 13.02 K/uL Red Blood Count 3.74 M/uL Hemoglobin 11.4 g/dL Hematocrit 33.3 % Mean Corpuscular Volume 89.0 fL Mean Corpuscular Hemoglobin 30.5 pg Mean Corpuscular Hemoglobin Concent 34.2 g/dl RDW Standard Deviation 42.8 fL RDW Coefficient of Variation 13.1 % Platelet Count 252 K/uL Mean Platelet Volume 9.2 fL Sodium Level 141 mmol/L Potassium Level 4.2 mmol/L Chloride Level 110 mmol/L Carbon Dioxide Level 24 mmol/L Anion Gap 7.0 mmol/L Blood Urea Nitrogen 14 mg/dl Creatinine 0.79 mg/dl Est Creatinine Clear Calc Drug Dose 85.8 ml/min Estimated GFR () 95.6 Estimated GFR (Non- 82.5 BUN/Creatinine Ratio 17.4 Random Glucose 115 mg/dl Calcium Level 8.6 mg/dl Assessment & Plan S/P LEFT TKA - POD# 1 stable overall monitor Hg DEPRESSION - continue Wellbutrin GERD - continue H2 payton and PPI DVT PROPHYLAXIS - ASA 81mg BID per ortho Thank you for this consultation. We will follow the patient with you during their hospital stay. You can reach a member of the [facility] Hospitalist Team 26/10 via pager @ . Current Inpatient Medications: Current Inpatient Medications Medications (Trade) Dose Ordered Sig/Cindy Route Start Time Stop Time Status Last Admin Dose Admin Bupropion HCl (Wellbutrin-Xl Tab) 300 mg QAM PO 04/16/17 09:00 05/16/17 08:59 04/16/17 09:06 300 MG Bupropion HCl (Wellbutrin-Xl Tab) 150 mg QAM PO 04/16/17 09:00 05/16/17 08:59 04/16/17 09:06 150 MG Ranitidine HCl (zANTac TAB) 150 mg Q2D@0900 PO 04/17/17 09:00 05/17/17 08:59 Valacyclovir HCl (Valtrex Tab) 1,000 mg DAILY PRN PO 04/15/17 09:30 04/25/17 09:29 Pantoprazole Sodium (Protonix Tab) 40 mg Q2D@0900 PO 04/16/17 09:00 05/16/17 08:59 04/16/17 09:06 40 MG Celecoxib (CeleBREX CAP) 200 mg BID PO 04/15/17 21:00 05/15/17 20:59 04/16/17 09:05 200 MG Oxycodone HCl (Roxicodone Immediate Rel Tab) 1 TABLET FOR PAIN RATING... Q4H PRN PO 04/15/17 09:30 04/29/17 09:29 04/16/17 19:28 10 MG Acetaminophen (Tylenol Tab) 1,000 mg Q8 PO 04/15/17 14:00 05/15/17 13:59 04/16/17 13:48 1,000 MG Magnesium Hydroxide (Milk Of Magnesia Susp) 30 ml Q6H PRN PO 04/15/17 09:30 05/15/17 09:29 Bisacodyl (Dulcolax Supp) [address] 04/15/17 09:30 05/15/17 09:29 Sodium Biphosphate/ Sodium Phosphate (Fleet Enema) [address] 04/15/17 09:30 05/15/17 09:29 Docusate Sodium (coLACE CAP) 100 mg BID PO 04/15/17 21:00 05/15/17 20:59 04/16/17 09:05 100 MG Diphenhydramine HCl (Benadryl Cap) 25 mg Q8H PRN PO 04/15/17 09:30 05/15/17 09:29 Zolpidem Tartrate (Ambien Tab) 5 mg HSZ PRN PO 04/15/17 09:30 05/15/17 09:29 Multivitamins (Multivitamin Tab) 1 tab QAM PO 04/16/17 09:00 05/16/17 08:59 04/16/17 09:05 1 TAB Ondansetron HCl (Zofran Inj) 4 mg Q6H PRN IV 04/15/17 09:30 05/15/17 09:29 Metoclopramide HCl (Reglan Inj) 10 mg Q6H PRN IV 04/15/17 09:30 05/15/17 09:29 Tramadol HCl (Ultram Tab) 1 tablet for pain rating... Q4H PRN PO 04/15/17 09:30 05/15/17 09:29 04/16/17 15:43 100 MG Aspirin (Ecotrin Tab) 81 mg BID PO 04/15/17 21:00 05/15/17 20:59 04/16/17 09:05 81 MG Morphine Sulfate (MoRPHine SULFATE INJ) 2 mg Q2H PRN IV 04/15/17 12:30 04/29/17 12:29 Morphine Sulfate (MoRPHine SULFATE INJ) 4 mg Q2H PRN IV 04/15/17 12:30 04/29/17 12:29
[2017-04-16 23:05] VITALS: BP 109/72; PULSE 76; TEMP 36.9; O2SAT 96
[2017-04-17] MEDS: TRAMADOL HCL 50 MG TAB PO PRN ×2 (03:04→08:16)
[2017-04-17 05:58] VITALS: BP 128/85; PULSE 73; TEMP 36.6; O2SAT 98
[2017-04-17] MEDS: ACETAMINOPHEN 500 MG TAB PO SCH (06:13)
[2017-04-17] MEDS: OXYCODONE HCL IR 5 MG TAB (IMMEDIATE RELEASE) PO PRN (07:06)
[2017-04-17 07:13] LABS: HEMATOCRIT 33.1 % (37-47); HEMOGLOBIN 10.7 g/dL (12.0-16.0); MEAN CELL VOLUME 91.2 fL (80-100); MEAN CORPUSCULAR HEMOGLOBIN 29.5 pg (25-34); MEAN CORPUSCULAR HGB CONC 32.3 g/dl (32-36); MEAN PLATELET VOLUME 9.4 fL (7.4-10.4); PLATELET COUNT 242 K/uL (130-400); RED CELL DISTRIBUTION WIDTH CV 13.5 % (11.5-14.5); RED CELL DISTRIBUTION WIDTH SD 45.3 fL (36.4-46.3); WHITE BLOOD COUNT 8.86 K/uL (4.8-10.8)
--- NOTE | 2017-04-17 07:21 | Orthopedic Progress Note ---
Orthopedic Progress Note Date of Service Apr 17, 2017. Subjective Post OP Day: 2 Reports: feeling well, pain controlled w PO medications, Denies: complaints, chest pain, SOB, nausea / vomiting, light headedness, calf pain Objective calves soft nontender, N/V intact, capillary refill less than 2 sec., dressing C /D/I, A&O x3, toes mobile Date Time Temp Pulse Resp B/P (MAP) Pulse Ox O2 Delivery O2 Flow Rate FiO2 04/17/17 05:58 36.6 73 16 128/85 (99) 98 Room Air 04/16/17 23:30 Room Air 04/16/17 23:05 36.9 76 18 109/72 (84) 96 Room Air 04/16/17 15:40 Room Air 04/16/17 15:14 36.9 87 16 110/70 (83) 96 Room Air 04/16/17 11:07 36.6 74 16 119/76 (90) 98 Room Air 04/16/17 07:35 Room Air Laboratory Results 24 Hours: Test 04/17/17 06:44 Hematocrit 33.1 % Hemoglobin 10.7 g/dL Assessment & Plan Assessment: POD 2 s/p Left TKA Plan: PT/OT Planning for OPPT Inhouse Planning Pain Management: Celebrex, Ultram, PO Tylenol, Oxy IR DVT Prophylaxis: TEDs, SCDs, ASA Discharge Planning Discharge Planning: home with oppt
[2017-04-17] MEDS ORDERED: RXC5 PO (07:24)
[2017-04-17] MEDS ORDERED: ACET-24 PO (07:24)
[2017-04-17] MEDS ORDERED: ASPEC81 PO (07:24)
[2017-04-17 07:43] LABS: CALCIUM 8.3 mg/dl (8.5-10.1); CREATININE 0.85 mg/dl (0.60-1.20); POTASSIUM 4.4 mmol/L (3.5-5.1)
[2017-04-17] MEDS: CeleBREX 200 MG CAP PO SCH (08:19)
[2017-04-17] MEDS: ASPIRIN 81 MG ECTAB PO SCH (08:19)
[2017-04-17] MEDS: DOCUSATE SODIUM 100 MG CAP PO SCH (08:19)
[2017-04-17] MEDS: MULTIVITAMIN TAB PO SCH (08:19)
[2017-04-17] MEDS: BuPROPion XL 300 MG TABCR PO SCH (08:20)
[2017-04-17] MEDS: BuPROPion XL 150 MG TABCR PO SCH (08:20)
[2017-04-17 08:42] VITALS: BP 128/85; PULSE 73; TEMP 36.6; O2SAT 98
[2017-04-17] MEDS ORDERED: RANITIDINE HCL 150 MG TAB PO SCH (09:00)
== END 2017-04-17 11:22 | disposition home or self-care (01) | DRG 470 ==
LOC: C.ACU 05:20 → C.3E 07:09 → ENRESERV 09:55
PROVIDERS: ADMIT Orthopaedic Surgery Sports Medicine; ATTEND Orthopaedic Surgery Sports Medicine
PROC: 0SRU0J9 Replacement of Left Knee Joint, Femoral Surface with Synthetic Substitute, Cemented, Open Approach (ICD-10-PCS; principal; 2017-04-15 07:15)
DX: M17.12 Unilateral primary osteoarthritis, left knee (principal); K21.9 Gastro-esophageal reflux disease without esophagitis; E66.9 Obesity, unspecified; Z98.51 Tubal ligation status; Z90.49 Acquired absence of other specified parts of digestive tract; Z68.30 Body mass index [BMI] 30.0-30.9, adult